=== PATIENT | female | born 1985 | race Caucasian/White ===

== ENCOUNTER 2023-12-17 22:33 | Emergency (ER) | payer MEDICAID, OTHER ==
[2023-12-18 01:23] LABS: Influenza A by NAA Not Detected (NotDetected); Influenza B by NAA Not Detected (NotDetected); SARS-CoV-2 NAA Rapid Test Not Detected (NotDetected)
== END 2023-12-18 01:48 | disposition home or self-care (01) ==
LOC: ERS 22:33
DX: J06.9 Acute upper respiratory infection, unspecified (principal); S90.822A Blister (nonthermal), left foot, initial encounter; J45.909 Unspecified asthma, uncomplicated; Z79.899 Other long term (current) drug therapy; F17.290 Nicotine dependence, other tobacco product, uncomplicated; X58.XXXA Exposure to other specified factors, initial encounter

== ENCOUNTER 2023-12-18 05:52 | Emergency (ER) | payer MEDICAID, OTHER | END 2023-12-18 07:03 | disposition home or self-care (01) | LOC: ERS 05:52 | DX: S90.822A Blister (nonthermal), left foot, initial encounter (principal); F17.290 Nicotine dependence, other tobacco product, uncomplicated; X58.XXXA Exposure to other specified factors, initial encounter | CPT/HCPCS: 99283 ==

== ENCOUNTER 2024-03-25 21:38 | Emergency (ER) | payer OTHER ==
[2024-03-25] MEDS ORDERED: Albuterol 200 PUFF (6.7GM INHALER) ONE (22:21)
[2024-03-25] MEDS ORDERED: predniSONE 20 MG TAB ONE (22:59)
[2024-03-25] MEDS ORDERED: hydrOXYzine 25 MG TAB ONE (22:59)
== END 2024-03-25 22:53 | disposition home or self-care (01) ==
LOC: ERS 21:38
DX: F41.0 Panic disorder [episodic paroxysmal anxiety] (principal); Z76.0 Encounter for issue of repeat prescription; F17.290 Nicotine dependence, other tobacco product, uncomplicated
CPT/HCPCS: 94664; 99283; J7512